=== PATIENT | female | born 1945 | race Caucasian/White ===

== ENCOUNTER 2016-11-15 09:01 | Inpatient (IN) | payer OTHER ==
[2016-10-21 11:58] VITALS: BMI 22.0
--- NOTE | 2016-10-21 12:43 | PAT Medication Instructions ---
Service Date Oct 21, 2016. Current Home Medication List Alprazolam (Xanax), 0.25 MG PO HS Aspirin (Aspirin Ec), 81 MG PO QAM Atenolol (Tenormin), 50 MG PO QAM Calcium/Vitamin D (Caltrate 600 Plus *), 1 TAB PO BID Cholecalciferol (Vitamin D3), 1 TAB PO QAM Denosumab (Prolia), 1 DOSE IM Jul, Medication Instructions For Your Scheduled Surgery Denosumab (Prolia), 1 DOSE IM Jul, (check with surgeon for instructions) - Hold the following medications the morning of surgery: Calcium/Vitamin D (Caltrate 600 Plus *), 1 TAB PO BID Cholecalciferol (Vitamin D3), 1 TAB PO QAM - Take the following medications the morning of surgery with a sip of water: Atenolol (Tenormin), 50 MG PO QAM Aspirin (Aspirin Ec), 81 MG PO QAM - Take the following medications as scheduled the night before surgery: Calcium/Vitamin D (Caltrate 600 Plus *), 1 TAB PO BID Alprazolam (Xanax), 0.25 MG PO HS If you have any questions please call us at [phone] (Modesta Baldwin PA-C) or [phone] or [phone]
[2016-10-21 13:14] LABS: BASO % 0.5 %; BASO ABS # 0.02 K/uL (0-0.2); COMPLETE YES; EOS % 3.7 %; HEMATOCRIT 40.5 % (37-47); IG% 0.2 %; LYMPH % 37.8 %; LYMPH ABS # 1.54 K/uL (1.2-3.4); MEAN CELL VOLUME 80.4 fL (80-100); MEAN CORPUSCULAR HEMOGLOBIN 27.6 pg (25-34); MEAN CORPUSCULAR HGB CONC 34.3 g/dl (32-36); MEAN PLATELET VOLUME 8.6 fL (7.4-10.4); MONO % 8.4 %; NEUT % 49.4 %; PLATELET COUNT 254 K/uL (130-400); RED BLOOD COUNT 5.04 M/uL (4.2-5.4); WHITE BLOOD COUNT 4.07 K/uL (4.8-10.8)
[2016-10-21 13:19] LABS: URINE APPEARANCE CLEAR (CLEAR); URINE BILIRUBIN NEG (NEG); URINE COLOR YELLOW; URINE EPITHELIAL CELL AUTO 0-5 /lpf (0-5); URINE NITRITE NEG (NEG); URINE SPECIFIC GRAVITY 1.009 (1.000-1.030); UROBILINOGEN NEG (NEG); ZZUR CULT IF INDIC CLEAN CATCH NO
[2016-10-21 13:29] LABS: MANUAL MICROSCOPIC REQUIRED? NO; REVIEW REQ? NO
[2016-10-21 13:31] LABS: PROTHROMBIN TIME (PATIENT) 10.7 SECONDS (9.0-12.0)
[2016-10-21 13:52] LABS: BUN/CREATININE RATIO 19.1 (10-20); CALCIUM 9.5 mg/dl (8.5-10.1); CREATININE 0.67 mg/dl (0.60-1.20); POTASSIUM 4.2 mmol/L (3.5-5.1)
--- NOTE | 2016-11-12 08:31 | HISTORY & PHYSICAL EXAMINATION ---
DATE OF ADMISSION: 11/15/2016 CHIEF COMPLAINT: Left knee pain. HISTORY OF PRESENT ILLNESS: Margaret is a 71-year-old female with a 30-year history of pain in her left knee. The patient reports pain with walking and instability. She has pain with her daily activities. She has limited standing and walking tolerance. Pain is worse with weightbearing. The patient has had injections, she has failed other conservative treatment, and is scheduled for left knee replacement. PAST MEDICAL HISTORY: Heart murmur, hypertension and TIA. She denies heart disease, diabetes or DVT. PAST SURGICAL HISTORY: Right total knee replacement in 2011, pilonidal cyst in 1965. SOCIAL HISTORY: The patient denies alcohol or tobacco use. She lives in a single-story home. She is and retired. FAMILY HISTORY: Negative for DVT. MEDICATIONS: Atenolol 50 mg, calcium 600 mg b.i.d., aspirin 81 mg daily, vitamin D3 1000 International Units, and Prolia injection every 6 months. ALLERGIES: CEFUROXIME. REVIEW OF SYSTEMS: See HPI. Ten other systems reviewed, all negative. PHYSICAL EXAMINATION: VITAL SIGNS: Height 5 feet 1 inch, weight 120 pounds, BMI is 23. GENERAL: This is a well-developed, well-nourished female who is alert and oriented x3. Mood and affect are appropriate. HEENT: Normocephalic, atraumatic. Mucous membranes are moist and intact. NECK: Supple without lymphadenopathy. HEART: Regular rate and rhythm without murmurs, rubs or gallops. LUNGS: Clear to auscultation without wheezes or rhonchi. ABDOMEN: Soft and nontender. Bowel sounds are equal and active. EXTREMITIES: No ecchymosis, redness or warmth. She has a varus deformity. Range of motion is from 0-115 degrees with +2 to 3 laxity. She is neurovascularly intact with +5/5 strength. X-RAY EXAMINATION: AP and lateral views show joint space narrowing and osteophyte formation. IMPRESSION: Degenerative joint disease, left knee. PLAN: The patient will be admitted for a left total knee arthroplasty. We will plan on aspirin for DVT prophylaxis. The patient would like to limit narcotics due to previous issues with confusion. She has [facility] for home physical therapy. [facility]
[~2016-11-15] VITALS: Ht 154.9 cm; Wt 53.8 kg
[2016-11-15] VITALS (7 sets, daily range): BP systolic 100–159; BP diastolic 49–77; PULSE 66–77; TEMP 36.3–36.7; O2SAT 96–100; Ht 154.9 cm; Wt 53.8 kg
[2016-11-15] MEDS: TRANEXAMIC ACID INJ 1,000 MG in SODIUM CHLORIDE 0.9% 100ML 100 ML IV SCH ×2 (06:30→11:50)
[~2016-11-15 09:01] MED LIST: ACETAMINOPHEN 500 MG TAB PO SCH; ALPR-411 PO; ASPI81TA28 PO; ATEN50TA8 PO; BUPIVACAINE 0.25% 30 ML VIAL ONE; BUPIVACAINE 0.5 % 5 MG/1 ML PF 10ML VIAL ONE; BUPIVACAINE LIPOSOME 266 MG, BUPIVACAINE/EPINEPHRINE INJ 50 ML, SODIUM CHLORIDE 0.9% PF... INFIL SCH; CHOL1000 PO; CLINDAMYCIN 600 MG/54 ML D5W 54 ML IV SCH; CLTP PO; CeleBREX 200 MG CAP PO SCH; DENO60SO IM; DEXAMETHASONE 4 MG TAB PO SCH; FAMOTIDINE 20 MG TAB PO SCH; GABAPENTIN 300 MG CAP PO SCH; LACTATED RINGER'S 1000ML 1,000 ML IV SCH; LACTATED RINGER'S 1000ML 500 ML IV ONE; LACTATED RINGER'S 1000ML IV SCH; METOCLOPRAMIDE HCL 10 MG TAB PO SCH; POLYMYXIN B SULFATE 100,000 UNITS in NSS 100ML IR SCH; ROPIVACAINE 5MG/ML 30 ML 150 MG, BUPIVACAINE/EPINEPHR 0.5% MPF 30 ML, KETOROLAC TROMETH... INFIL SCH; VANCOMYCIN INJ 400 MG in NSS 100ML IR SCH
[2016-11-15] MEDS ORDERED: FENTANYL CITRATE INJ 50 MCG/1 ML 2 ML VIAL ONE (10:56)
[2016-11-15] MEDS ORDERED: PROPOFOL IV EMULSION 10 MG/ML 20 ML VIAL IV ONE (10:56)
[2016-11-15] MEDS ORDERED: MIDAZOLAM HCL 1 MG/ML 2ML VIAL ONE (10:56)
--- NOTE | 2016-11-15 10:58 | History & Physical Bridge Note ---
H&P Re-Evaluation Bridge Note: I have examined the patient, reviewed the History & Physical and in the interval since the performance of the History & Physical I have noted the following changes of clinical significance: No changes noted
[2016-11-15] MEDS ORDERED: LACTATED RINGER'S 1000ML 1,000 ML IV PRN (11:25)
[2016-11-15] MEDS ORDERED: ONDANSETRON INJ 2 MG/ML 2 ML VIAL IV PRN ×2 (11:30→13:30)
[2016-11-15] MEDS ORDERED: FENTANYL CITRATE INJ 50 MCG/1 ML 2 ML VIAL IV PRN (11:30)
[2016-11-15] MEDS ORDERED: POVIDONE-IODINE OP SOLN 30 ML BTL ONE (11:49)
[2016-11-15] MEDS ORDERED: ORTHO JOINT ANESTHETIC ONE (11:49)
[2016-11-15] MEDS ORDERED: BUPIVACAINE/EPINEPHRINE 0.25% 1:200,000 30 ML VIAL ONE (11:49)
[2016-11-15] MEDS ORDERED: BACITRACIN 50000 UNIT VIAL ONE (11:49)
--- NOTE | 2016-11-15 13:17 | [facility] Post Operative Brief Note ---
Immediate Operative Summary Operative Date Nov 15, 2016. Pre-Operative Diagnosis Left Knee Degenerative Joint Disease Post-Operative Diagnosis Left Knee Degenerative Joint Disease Procedure(s) Performed Left Total Knee Arthroplasty Surgeon Dr. Dominic Lipscomb Collator Hand Surgeon(s) Alexis Lewis PA-C Estimated Blood Loss 50ML Findings DJD Specimens A. Left knee bone and tissue Complication(s) None Disposition Recovery Room / PACU
[2016-11-15] MEDS ORDERED: EpHEDrine SULFATE INJ 50 MG/ML AMP ONE (13:28)
[2016-11-15] MEDS ORDERED: MoRPHine SULFATE 2 MG/ML CARP IV PRN (13:30)
[2016-11-15] MEDS ORDERED: ALUMINUM/MAGNESIUM/SIMETH (MAALOX MAX) 30 ML UDC PO PRN (13:30)
[2016-11-15] MEDS ORDERED: MAGNESIUM HYDROXIDE SUSP 30 ML UDC PO PRN (13:30)
[2016-11-15] MEDS ORDERED: ZOLPIDEM TARTRATE 5 MG TAB PO PRN (13:30)
[2016-11-15] MEDS ORDERED: OXYCODONE HCL IR 5 MG TAB (IMMEDIATE RELEASE) PO PRN (13:30)
[2016-11-15] MEDS ORDERED: KETOROLAC TROMETHAMINE 15 MG/ML VIAL IV. PRN (13:30)
[2016-11-15] MEDS ORDERED: DiphenhydrAMINE HCL 50 MG/ML VIAL IV PRN (13:30)
[2016-11-15] MEDS ORDERED: METOCLOPRAMIDE HCL INJ 5 MG/ML 2 ML VIAL IV PRN (13:30)
[2016-11-15] MEDS ORDERED: SOD PHOSPHATE/SOD BIPHOSPHATE ENEMA 132 ML BTL PR PRN (13:30)
[2016-11-15] MEDS ORDERED: TRAMADOL HCL 50 MG TAB PO PRN (13:30)
[2016-11-15] MEDS ORDERED: BISACODYL 10 MG SUPP PR PRN (13:30)
--- NOTE | 2016-11-15 14:18 | Anesthesiology Progress Note ---
Anesthesia Post Op Note Date & Time Nov 15, 2016 at 14:16 Vital Signs Pain Intensity: 0 Vital Signs Past 12 Hours Date Time Temp Pulse Resp B/P Pulse Ox O2 Delivery O2 Flow Rate FiO2 11/15/16 14:15 68 18 112/53 99 Nasal Cannula 2 11/15/16 14:05 70 20 104/57 100 Mask 10 11/15/16 13:58 36.4 68 14 113/52 100 Mask 10 11/15/16 09:38 36.7 70 20 159/77 99 Room Air Notes Mental Status: alert / awake / arousable, participated in evaluation Pt Amnestic to Procedure: No (recall as expected) Nausea / Vomiting: adequately controlled Pain: adequately controlled Airway Patency, RR, SpO2: stable & adequate BP & HR: stable & adequate Hydration State: stable & adequate Neuraxial Anesthesia: was administered, sensory block is resolving Anesthetic Complications: no major complications apparent Pt doing well.
--- NOTE | 2016-11-15 14:33 | DIAGNOSTIC IMAGING REPORT ---
LEFT KNEE 1 OR 2 VIEWS ROUTINE CLINICAL HISTORY: Degenerative arthritis COMPARISON: None. DISCUSSION: 2 views reveal postsurgical changes of a total left knee arthroplasty and patellar resurfacing. There are overlying surgical drains. The femoral and tibial components appear well seated. There is air within the soft tissues consistent with recent surgery. IMPRESSION: Post surgical changes of a total left knee arthroplasty. Electronically signed by: Sj Aguilar M.D. 11/15/2016 2:31 PM Dictated Date/Time: 11/15/2016 2:30 PM
--- NOTE | 2016-11-15 15:29 | OPERATIVE REPORT ---
DATE OF OPERATION: 11/15/2016 PREOPERATIVE DIAGNOSIS: Degenerative arthritis, left knee. POSTOPERATIVE DIAGNOSIS: Same. PROCEDURE: Left total knee with patient matched implant. SURGEON: Dr. Oliverio Lipscomb. HEALTH CARE SPECIALIST: YANELIS Desai. ANESTHESIA: Spinal. ESTIMATED BLOOD LOSS: 75 mL. REPLACEMENT FLUIDS: 1800 mL of crystalloid. DRAINS: Hemovac x2. CULTURES: None. COMPLICATIONS: None. COMPONENTS USED: [employer] OpenDN[employer]ure[employer] Knee System: Femur size 3, tibia size 2 x 11, and patella size 32. NOTE: Alexis Lewis was present and assisted throughout due to the complicated nature of this case. He helped with preparation and first assisted throughout and personally closed the capsule, subcutaneous and skin layers and applied the postoperative dressing. DESCRIPTION OF PROCEDURE: Following satisfactory spinal, the patient was supine. A tourniquet was placed, but not inflated. The lower extremity was prepared with ChloraPrep and draped sterilely. Following a surgical time-out, a midline incision was made with a trivector approach. The knee showed grade 4 changes throughout, especially severe in the medial compartment and the patellofemoral compartment with bone loss. The cruciate ligaments were excised. The patient matched femoral block was applied. Femoral distal rotation and resection were set and completed. The 4-in-1 block was used to finish preparation of the femur. The patient matched tibial block was applied. Tibial resection was completed. Patella was freehand cut. Soft tissue balancing was completed and a trial reduction showed good tensioning stability on the collateral ligaments, stable range of motion, and the patella tracked well. The trial components were removed. The capsule was prepared with the orthopedic cocktail and after irrigation, the components were cemented using Simplex G cement. A Betadine soak was performed. When the cement had hardened, the Betadine was irrigated. Two drains were placed. The arthrotomy was closed with a running suture of 0 V-Loc, subcutaneous tissues with 2-0 Vicryl, and the skin with a running subcuticular stitch of 3-0 V-Loc. Dermabond and a dry dressing were applied. The patient was returned to her bed in stable condition. I attest to the content of the Intraoperative Record and any orders documented therein. Any exceptio ns are noted below.
[2016-11-15] MEDS: D5W AND 1/2NSS + 20MEQ KCL 1,000 ML IV SCH (16:48)
[2016-11-15] MEDS: CLINDAMYCIN IV 600 MG in DEXTROSE 5% ADD-VANTAGE 50ML 50 ML IV SCH (20:47)
[2016-11-15] MEDS: CALCIUM 600MG + VIT D 400 IU TAB PO SCH (20:48)
[2016-11-15] MEDS: ASPIRIN 81 MG ECTAB PO SCH (20:49)
[2016-11-15] MEDS ORDERED: SENNA 8.6 MG TAB PO SCH (21:00)
[2016-11-15] MEDS ORDERED: ALPRAZOLAM 0.25 MG TAB PO SCH (21:00)
[2016-11-15] MEDS: ACETAMINOPHEN 500 MG TAB PO SCH (22:21)
[2016-11-16] MEDS: D5W AND 1/2NSS + 20MEQ KCL 1,000 ML IV SCH ×2 (02:05→12:14)
[2016-11-16 03:11] VITALS: BP 114/65; PULSE 66; TEMP 36.3; O2SAT 97
[2016-11-16] MEDS: CLINDAMYCIN IV 600 MG in DEXTROSE 5% ADD-VANTAGE 50ML 50 ML IV SCH (03:13)
[2016-11-16] MEDS: ACETAMINOPHEN 500 MG TAB PO SCH ×2 (05:13→13:30)
[2016-11-16 06:22] LABS: HEMATOCRIT 31.6 % (37-47); MEAN CELL VOLUME 83.2 fL (80-100); MEAN CORPUSCULAR HEMOGLOBIN 28.7 pg (25-34); MEAN CORPUSCULAR HGB CONC 34.5 g/dl (32-36); MEAN PLATELET VOLUME 8.6 fL (7.4-10.4); PLATELET COUNT 240 K/uL (130-400)
[2016-11-16 07:01] LABS: BUN/CREATININE RATIO 17.6 (10-20); CALCIUM 8.2 mg/dl (8.5-10.1); CREATININE 0.62 mg/dl (0.60-1.20); POTASSIUM 4.3 mmol/L (3.5-5.1)
[2016-11-16 07:51] VITALS: BP 115/68; PULSE 67; TEMP 36.3; O2SAT 99
--- NOTE | 2016-11-16 08:04 | Orthopedic Progress Note ---
Orthopedic Progress Note Date of Service Nov 16, 2016. Subjective Post OP Day: 1 Reports: feeling well, Denies: SOB, calf pain, chest pain, complaints, light headedness, nausea / vomiting Additional Notes: Pt states she was up ambulating in the hallway last night. Objective calves soft nontender, N/V intact, dressing C/D/I, A&O x3, toes mobile, hemovac drainage (150ml latest shift) Date Time Temp Pulse Resp B/P Pulse Ox O2 Delivery O2 Flow Rate FiO2 11/16/16 07:51 36.3 67 18 115/68 99 Room Air 11/16/16 03:11 36.3 66 16 114/65 97 Room Air 11/15/16 23:25 Room Air 11/15/16 23:09 36.5 66 16 100/49 96 Room Air 11/15/16 18:36 36.4 77 18 114/66 100 Nasal Cannula 2.0 11/15/16 17:36 73 16 128/73 100 Nasal Cannula 2.0 11/15/16 16:32 36.3 69 16 134/74 98 Nasal Cannula 2.0 11/15/16 16:06 36.3 72 16 117/68 100 Room Air 2.0 11/15/16 15:45 99 Nasal Cannula 2.0 11/15/16 15:45 99 Nasal Cannula 2.0 11/15/16 15:15 66 13 105/51 99 Nasal Cannula 2 11/15/16 15:00 70 16 96/47 99 Nasal Cannula 2 11/15/16 14:45 66 12 107/50 99 Nasal Cannula 2 11/15/16 14:35 69 13 111/53 98 Nasal Cannula 2 11/15/16 14:25 36.4 68 13 111/55 99 Nasal Cannula 2 11/15/16 14:15 68 18 112/53 99 Nasal Cannula 2 11/15/16 14:05 70 20 104/57 100 Mask 10 11/15/16 13:58 36.4 68 14 113/52 100 Mask 10 11/15/16 09:38 36.7 70 20 159/77 99 Room Air Laboratory Results 24 Hours: Test 11/16/16 05:59 Hematocrit 31.6 % Hemoglobin 10.9 g/dL Assessment & Plan Assessment: POD 1 s/p Left TKA Plan: PT/OT Planning for Home with Home Health ([facility]) Inhouse Planning Pain Management: Celebrex, Toradol, Ultram, Morphine, PO Tylenol, Oxy IR DVT Prophylaxis: TEDs, SCDs, ASA Discharge Planning Discharge Planning: home with home health Pain Management: Celebrex, PO Tylenol, Oxy IR DVT Prophylaxis: TEDs, ASA Therapy: Physical Therapy
--- NOTE | 2016-11-16 08:09 | Discharge Instructions ---
Discharge Instructions Date of Service Nov 16, 2016. Admission Reason for Admission: Left Knee Degenerative Arthritis Discharge Discharge Diagnosis / Problem: Left Knee Djd Discharge Goals Goal(s): Decrease discomfort, Improve function Activity Recommendations Activity Limitations: per Instructions/Follow-up section Weightbearing Status: Left weightbearing (as tolerated) . Instructions / Follow-Up Instructions / Follow-Up ACTIVITY RECOMMENDATIONS: SELF CARE INSTRUCTIONS AFTER TOTAL KNEE REPLACEMENT A. You may need to continue a physical therapy program after discharge from the hospital. There are several options available to you. Your doctor will assist you in selecting the best one for you. 1. An out-patient facility 2 to 3 times a week for therapy or home therapy. 2. Continue working on all exercises taught to you in the hospital. Your goals should be to increase bending of your knee to 90 degrees and beyond and to fully straighten your knee. B. You may progress at your own pace from walking with a walker or crutches to a cane; then to no assistive devices. C. Make walking a part of your daily routine. Be up as much as comfortable with rest periods throughout the day. Rest with leg elevation is very important. Use the ice wrap frequently for the first 3-4 weeks. D. There are no restrictions on activities. You may ride in a car, shop, participate in deliverer merchandise and all social activities. E. Wear the long elastic stockings (GALA hose) 20 hours a day for 2 weeks after surgery. They can be removed several times a day for laundering and for a bath. F. You may shower, no tub baths until cleared by your doctor. SPECIAL CARE INSTRUCTIONS: VERY IMPORTANT TO READ AND REVIEW A. There are a few signs you need to watch for after you are home. Call [facility] if you notice any of the followin. Increased severe knee pain. Some pain is expected especially when you exercise. 2. Increased swelling in your leg or knee; pain or swelling of the calf muscle in either lower leg. 3. Any fluid drainage from the incision. 4. Shortness of breath or chest pain. B. Please call [facility] at if you have any concerns or questions about your operation or recovery. The doctor or his nurse will return your call promptly. C. You must take antibiotics before dental work, bladder, bowel or other surgery. Your doctor will provide you with a permanent care to carry describing this precaution. IMPORTANT: * REMEMBER TO TAKE ASPIRIN, 81 MG, TWICE DAILY FOR 4 WEEKS UNLESS OTHERWISE DIRECTED. THIS IS YOUR BLOOD THINNER. * HIGH RISK PATIENTS MAY BE PRESCRIBED A STRONGER BLOOD THINNER. THIS WILL BE PROVIDED AT DISCHARGE. * CALL IF INCREASED PAIN, REDNESS, DRAINAGE OR FEVER GREATER THAT 101. * WEAR GALA HOSE 20 HOURS PER DAY FOR 2 WEEKS. * DERMABOND Prineo- This is a mesh tape dressing that is covered with glue. It should remain in place until the incision is properly healed, usually 10-14 days. This dressing is designed to naturally slough off. You may trim the excess mesh tape as it peels off. Incision may be briefly wet in a shower. Dry immediately by blotting with a clean, dry towel. Do not bath or swim until instructed by your doctor. Do not scratch, rub, or pick at the dressing. Do not apply any topical ointments or lotions until dressing is completely removed and/or instructed by your doctor. There may be a small piece of suture material at one end of your incision. Do not pull or trim this. If it is bothersome or catching on clothing, you may cover it with a band-aid. . FOLLOW UP VISIT: If appointment is not already scheduled: Please call [facility] to make a follow-up appointment for 2 weeks after your surgery at . Current Hospital Diet Patient's current hospital diet: Regular Diet Discharge Diet Recommended Diet: Regular Diet Procedures Procedures Performed: Left Total Knee Arthroplasty Pending Studies Studies pending at discharge: no Medical Emergencies . Who to Call and When: Medical Emergencies: If at any time you feel your situation is an emergency, please call 911 immediately. . Non-Emergent Contact Non-Emergency issues call your: Surgeon Call Non-Emergent contact if: temperature is above 101.5, your pain is not controlled, your pain is worsening, wound has increased drainage, wound has increased redness . "Provider Documentation" section prepared by Alxeis Lewis. . VTE Core Measure Inpt VTE Proph given/why not?: Other Anticoagulation, T.E.D. Stockings, SCD's [place] Drug Monitoring Program Search Results: patient reviewed within database, no issues identified
[2016-11-16] MEDS: ASPIRIN 81 MG ECTAB PO SCH (08:41)
[2016-11-16] MEDS: CALCIUM 600MG + VIT D 400 IU TAB PO SCH (08:41)
--- NOTE | 2016-11-16 08:55 | Anesthesiology Progress Note ---
Anesthesia Post Op Note Date & Time Nov 16, 2016 at 08:53 Vital Signs Pain Intensity: 0.0 Vital Signs Past 12 Hours Date Time Temp Pulse Resp B/P Pulse Ox O2 Delivery O2 Flow Rate FiO2 11/16/16 08:15 Room Air 11/16/16 07:51 36.3 67 18 115/68 99 Room Air 11/16/16 03:11 36.3 66 16 114/65 97 Room Air 11/15/16 23:25 Room Air 11/15/16 23:09 36.5 66 16 100/49 96 Room Air Notes Mental Status: alert / awake / arousable, participated in evaluation Pt Amnestic to Procedure: Yes Nausea / Vomiting: adequately controlled Pain: adequately controlled Airway Patency, RR, SpO2: stable & adequate BP & HR: stable & adequate Hydration State: stable & adequate Neuraxial Anesthesia: sensory block resolved Anesthetic Complications: no major complications apparent Pt concerned with medications administered last surgery. States she was confused for a week post-op after last surgery but feels much better this time. Pt received same medications both times. Will relay information to pt.
[2016-11-16] MEDS ORDERED: PANTOprazole SOD 40 MG TAB PO SCH (09:00)
[2016-11-16] MEDS ORDERED: MULTIVITAMIN TAB PO SCH (09:00)
[2016-11-16] MEDS ORDERED: CHOLECALCIFEROL 1000 INTER.UNIT TAB PO SCH (09:00)
[2016-11-16 10:40] VITALS: BP 113/69; PULSE 63; TEMP 36.5; O2SAT 100
[2016-11-16] MEDS ORDERED: ULT50X PO (14:03)
[2016-11-16] MEDS ORDERED: ACET-1138 PO (14:03)
[2016-11-16] MEDS ORDERED: ASPI81TA28 PO (14:03)
[2016-11-16] MEDS ORDERED: CLB200 PO (14:03)
[2016-11-16] MEDS ORDERED: SNK PO (14:03)
[2016-11-16] MEDS ORDERED: RXC5 PO (14:03)
[2016-11-16 15:01] VITALS: BP 125/75; PULSE 63; TEMP 36.9; O2SAT 100
[2016-11-16 15:18] VITALS: BP 125/75; PULSE 63; TEMP 36.9; O2SAT 100
[2016-11-16 15:27] VITALS: BP 125/75; PULSE 63; TEMP 36.9; O2SAT 100
--- NOTE | 2016-11-17 12:05 | DISCHARGE SUMMARY ---
DISCHARGE DIAGNOSIS: Degenerative joint disease, left knee. SECONDARY DIAGNOSES: History of heart murmur, hypertension, and transient ischemic attack. CONSULTS: None. COMPLICATIONS: None. PROCEDURES: Left total knee arthroplasty performed by Dr. Dominic Lipscomb on 11/15/2016. BRIEF HISTORY: As dictated in the history and physical. HOSPITAL SUMMARY: The patient was admitted on the above date and had the above-noted surgery performed which she tolerated well. On her first postoperative day, she was feeling well and had no complaints. She was up ambulating in the hallway the previous evening and was progressing well. Calves were soft and nontender, neurovascularly intact. Dressings were intact. Toes were mobile. Vital signs were stable and she was afebrile and hemoglobin was 10.1. She was started on physical therapy protocol and continued on DVT prophylaxis and pain management. She was progressing well with physical therapy, remaining stable and it was felt she be discharged to home with [facility]. The patient was planning on having drain removed at home, per [facility]. For further review, please see chart. LABORATORY AND X-RAY DATA: As per chart. DISCHARGE INSTRUCTIONS: The patient was discharged to home in satisfactory condition on 11/16/2016. DIET: Regular. ACTIVITY: Weightbearing as tolerated, left lower extremity. Follow TKA instruction sheets and special care instructions as noted. FOLLOWUP: Follow up with Dr. Dominic Lipscomb in 2 weeks. The patient to call for appointment if one has not been made for you. DISCHARGE MEDICATIONS: Acetaminophen 1000 mg p.o. q. 8 hours for 30 days, Celebrex 200 mg p.o. b.i.d., oxycodone 5-10 mg p.o. q. 4 hours p.r.n., senna 17.2 mg p.o. at bedtime, tramadol 50-100 mg p.o. q. 4 hours p.r.n.. Resume taking Xanax 0.25 mg p.o. at bedtime, atenolol 50 mg p.o. q.a.m., Caltrate 600+ one tab p.o. b.i.d., vitamin D3 one tab p.o. q.a.m.; Prolia 60 mg solution 1 dose IM, July and January; aspirin 81 mg p.o. b.i.d. for 30 days and after 30 days go back to once daily dosing.
[2016-11-17] MEDS ORDERED: CeleBREX 200 MG CAP PO SCH (21:00)
== END 2016-11-16 16:22 | disposition home health service (06) | DRG 470 ==
LOC: ENRESERVTM → ENRESERVDT → C.ACU 09:01 → C.3E 09:30
PROVIDERS: ADMIT Orthopaedic Surgery; ATTEND Orthopaedic Surgery
PROC: 0SRD0J9 Replacement of Left Knee Joint with Synthetic Substitute, Cemented, Open Approach (ICD-10-PCS; principal; 2016-11-15 11:30)
DX: M17.12 Unilateral primary osteoarthritis, left knee (principal); Z86.73 Personal history of transient ischemic attack (TIA), and cerebral infarction without residual deficits; I10 Essential (primary) hypertension; Z96.651 Presence of right artificial knee joint; F41.9 Anxiety disorder, unspecified; F32.9 Major depressive disorder, single episode, unspecified; M81.0 Age-related osteoporosis without current pathological fracture; R01.1 Cardiac murmur, unspecified; M41.9 Scoliosis, unspecified; M26.609 Unspecified temporomandibular joint disorder, unspecified side; Z79.82 Long term (current) use of aspirin; Z79.899 Other long term (current) drug therapy